=== PATIENT | female | born 1955 | race Caucasian/White ===

== ENCOUNTER 2023-09-04 16:14 | Emergency (ER) | payer MEDICARE, OTHER, SELFPAY ==
[2023-09-04 16:16] VITALS: BP 133/95; BMI 27.5
--- NOTE | 2023-09-04 23:23 | ED.MUSCINJ ---
HPI-Injury
General
Chief Complaint: Musculo-Skeletal Complaint
Source: patient
Exam Limitations: none
Time Seen by Provider: 09/04/23 17:52
Nursing documentation reviewed up to this point in time: agreed with
Travel History
Have you had any contact with someone who has COVID-19?: No
Do you have any symptoms of coronavirus? Fever > 100 degrees, chills, cough, shortness of breath, sore throat, loss of taste or smell, muscle aches, or headache?: No
History of Present Illness-Injury
Is this injury a work related problem?: No
Is pt an associate of [facility]?: No
Initial Injury comments:
Patient states she fell out of shower on Saturday. Complains of paint to her left wrist. Brought self to ED for eval.
Past History
Past History
ED Past Medical History: Other (DVT)
Social History
Living: alone
Review of Systems
Review of Systems
Allergies reviewed?: Yes
All Other Systems: ROS reviewed and negative except as documented in HPI and ROS
Constitutional: Reports no symptoms
Musculoskeletal: Reports joint pain (pain to left wrist)
Skin: Reports no symptoms
Neurological: Reports no symptoms
Psychiatric: Reports no symptoms
Musculoskeletal Injury Exam
Musculoskeletal Injury Exam
Left Wrist:
Pain with Movement?: Moderate
Tender to palpation?: None
Soft tissue swelling?: None
External deformity and angulation?: None
Joint effusion?: None
Contusion?: Moderate
Hematoma-local bleeding into tissue?: None
Strain- Sprain- Tear (Connective tissue injury)?: Moderate
Crepitus with movement?: No
Joint instability?: No
Malalignment/deformity?: No
Range of motion: Limited
Distal skin color and temperature: normal-warm & good color
Capillary Refill: normal
Normal distal neurovascular exam?: Yes
Peripheral Pulses: radial (left): 3+
Phy Exam
General Physical Exam
General Presentation: well appearing and no apparent distress
General age: appears stated age
General Skin: warm and dry
General Habitus: normal
Musculoskeletal Exam
Musculoskeletal Exam: neuro vasc intact
Skin Exam
Skin Exam: normal color, warm/dry and no rash
Psychiatric Exam
Psychiatric Exam: normal mood/affect
Injury Course
Orders/Labs/Results
Orders:
Orders
09/04/23 16:19
Wrist, Left 3 Views CR [CR Wrist - Left Min 3 Views] Urgent
Comment:
Reason For Exam: pain
09/04/23 17:54
[place] Wrist Left-Treatment ONCE
*Radiology
Radiology exam reviewed: radiology read reviewed
*Pulse Oximetry
Patient hypoxic: no
*Critical Care Note
Total Time (30-74mins, 75-104mins- exclusive of procedures): Not Applicable
ED Attending Note
-
Portions of this chart may have been created with voice recognition software.� Occasional wrong word or��sound alike� substitutions may have occurred due to the inherent limitations of voice recognition software.
Discharge Plan
Departure
Patient Disposition: Home (Routine Discharge)
Date of Disposition: 09/04/23
Time of Disposition: 17:54
Patient with high blood pressure during this ER visit?: No
Condition: Good
Covid-19: Not Applicable
Discharge Problem:
Sprain of wrist
Instructions: Wrist Sprain (DC), Ibuprofen, Using Cold for Pain
Referrals:
Abdirashid Delgado, DO [Family Provider] -
Interventions
Interventions:
*Risk Screen - Suicide Last Done: 09/04/23 16:16
*General Assessment Last Done: 09/04/23 18:10
*Neglect/Abuse Screening Last Done: 09/04/23 16:16
ED- Fall Risk Assessment Last Done: 09/04/23 16:16
*ED COVID-19 Vaccine History Last Done: 09/04/23 16:16
*Nursing Disposition Last Done: 09/04/23 18:10
ED-Musculoskeletal Assessment Last Done: 09/04/23 17:53
Discharge Date and Time
Discharge Date/Time: 09/04/23 18:12
Print Language: NIGERIEN
== END 2023-09-04 18:12 | disposition home or self-care (01) ==
LOC: EMR 16:14
PROVIDERS: EMERGENCY PHYSICIAN Emergency Medicine; FAMILY PHYSICIAN Family Medicine
DX: S63.501A Unspecified sprain of right wrist, initial encounter (principal); W18.2XXA Fall in (into) shower or empty bathtub, initial encounter
CPT/HCPCS: 99283; 73110

== ENCOUNTER → 2024-12-09 11:42 | Outpatient (REF) | payer MEDICARE, OTHER, SELFPAY ==
[2024-12-09 14:21] LABS: Blood Urea Nitrogen 26 mg/dl (7-17)
== END ==
LOC: REG 11:42
PROVIDERS: ATTENDING PHYSICIAN Ophthalmology; FAMILY PHYSICIAN Internal Medicine
DX: H47.212 Primary optic atrophy, left eye (principal)
CPT/HCPCS: 36415; 82565; 84520

== ENCOUNTER → 2024-12-18 12:03 | Outpatient (REF) | payer MEDICARE, OTHER, SELFPAY | LOC: RAD 12:03 | PROVIDERS: ATTENDING PHYSICIAN Ophthalmology; FAMILY PHYSICIAN Internal Medicine | DX: H47.212 Primary optic atrophy, left eye (principal) | CPT/HCPCS: 70482; Q9967 ==